=== PATIENT | female | born 2000 | race Caucasian/White ===

== ENCOUNTER 2022-01-14 10:02 | Emergency (ER) | payer BC, OTHER, SELFPAY ==
[~2022-01-14] VITALS: Ht 157.5 cm; Wt 122.0 kg
[2022-01-14 10:03] VITALS: BP 147/92
[2022-01-14 11:34] LABS: HCG, SERUM QUALITATIVE NEGATIVE (NEGATIVE)
[2022-01-14 13:13] LABS: BASO # 0.1 10^3/uL (0.0-0.2); BASO % 0.6 % (0.0-1.0); EOS # 0.1 10^3/uL (0.0-0.5); EOS % 1.2 % (0.0-3.0); HEMOGLOBIN 14.8 g/dl (12.0-15.5); LYMPH # 2.5 10^3/uL (1.5-5.0); LYMPH % 23.1 % (24.0-44.0); MEAN CORPUSCULAR HEMOGLOBIN 32.5 pg (27.0-33.0); MEAN CORPUSCULAR HGB CONC 35.2 g/dl (32.0-36.5); MEAN CORPUSCULAR VOLUME 92.3 fl (80.0-96.0); MONO # 0.6 10^3/uL (0.0-0.8); MONO % 5.2 % (2.0-8.0); NEUTROPHILS # 7.5 10^3/uL (1.5-8.5); NEUTROPHILS % 69.5 % (36.0-66.0); PLATELET COUNT, AUTOMATED 245 10^3/uL (150-450); RED BLOOD COUNT 4.55 10^6/uL (4.00-5.40); WHITE BLOOD COUNT 10.8 10^3/uL (4.0-10.0)
[2022-01-14 14:09] LABS: ALBUMIN 3.7 GM/DL (3.2-5.2); ALT/SGPT 25 U/L (12-78); BILIRUBIN,DIRECT < 0.1 MG/DL (0.0-0.2); BILIRUBIN,TOTAL 0.6 MG/DL (0.2-1.0); BLOOD UREA NITROGEN 14 MG/DL (7-18); CALCIUM LEVEL 9.2 MG/DL (8.5-10.1); CARBON DIOXIDE LEVEL 28 MEQ/L (21-32); CHLORIDE LEVEL 105 MEQ/L (98-107); CREATININE FOR GFR 0.79 MG/DL (0.55-1.30); GLOMERULAR FILTRATION RATE > 60.0 (>60); GLUCOSE, FASTING 88 MG/DL (70-100); LIPASE 110 U/L (73-393); POTASSIUM SERUM 4.6 MEQ/L (3.5-5.1); SODIUM LEVEL 139 MEQ/L (136-145); TOTAL PROTEIN 7.8 GM/DL (6.4-8.2)
[2022-01-14] MEDS ORDERED: KETOROLAC 30 MG/ML 1ML VIAL IM ONE (14:25)
[2022-01-14] MEDS ORDERED: KETOROLAC 30 MG/ML 1ML VIAL IV ONE (14:40)
[2022-01-14 15:45] LABS: GC DNA AMPLIFICATION NEGATIVE (NEGATIVE)
== END 2022-01-14 14:51 | disposition home or self-care (01) ==
LOC: M ED 10:02
DX: R10.2 Pelvic and perineal pain (principal)
CPT/HCPCS: 76830; 76856; 80048; 80076; 83690; 84703; 85025; 87661; 87810; 87850; 93976; 96372; 99282; J1885

== ENCOUNTER → 2022-10-04 | Outpatient (CLI) | payer OTHER | LOC: M PAIN 08:00 | PROVIDERS: ATTEND Nurse Practitioner Family | DX: M79.10 Myalgia, unspecified site (principal); G89.29 Other chronic pain; F17.210 Nicotine dependence, cigarettes, uncomplicated; Z86.59 Personal history of other mental and behavioral disorders; E66.01 Morbid (severe) obesity due to excess calories; Z68.43 Body mass index [BMI] 50.0-59.9, adult; Z79.899 Other long term (current) drug therapy ==

== ENCOUNTER 2022-10-31 09:01 | Emergency (ER) | payer MEDICAID, OTHER ==
[~2022-10-31] VITALS: Ht 157.5 cm; Wt 131.9 kg
[2022-10-31 09:02] VITALS: BP 156/66
[2022-10-31] MEDS ORDERED: LIDOCAINE 5% (LIDODERM) PATCH TD ONE (11:20)
[2022-10-31] MEDS ORDERED: CYCLOBENZAPRINE 5MG TABLET PO ONE (11:20)
[2022-10-31] MEDS ORDERED: KETOROLAC 30 MG/ML 1ML VIAL IM ONE (11:20)
[2022-10-31] MEDS ORDERED: KETO10TAB PO (12:07)
[2022-10-31] MEDS ORDERED: CYCL-707 PO (12:07)
== END 2022-10-31 12:15 | disposition home or self-care (01) ==
LOC: M ED 09:01
DX: M54.50 Low back pain, unspecified (principal); F41.9 Anxiety disorder, unspecified; F43.10 Post-traumatic stress disorder, unspecified; F17.200 Nicotine dependence, unspecified, uncomplicated; Z79.1 Long term (current) use of non-steroidal anti-inflammatories (NSAID); Z79.899 Other long term (current) drug therapy
CPT/HCPCS: 96372; 99282; J1885

== ENCOUNTER → 2022-11-12 | Outpatient (CLI) | payer MEDICAID ==
[~2022-11-12] MED LIST: CYCL-707 PO; KETO10TAB PO; TRIAMCINOLONE ACETONIDE SUSP 40MG/ML 1ML VIAL As Ordered ONE
== END ==
LOC: M PAIN 14:45
PROVIDERS: ATTEND Anesthesiology
DX: M79.18 Myalgia, other site (principal); G89.29 Other chronic pain; F17.210 Nicotine dependence, cigarettes, uncomplicated; Z86.59 Personal history of other mental and behavioral disorders; Z91.018 Allergy to other foods; Z79.899 Other long term (current) drug therapy
CPT/HCPCS: 20553; J3301; S0020

== ENCOUNTER → 2023-01-04 | Outpatient (CLI) | payer MEDICAID ==
[~2023-01-04] MED LIST changes: -TRIAMCINOLONE ACETONIDE SUSP 40MG/ML 1ML VIAL As Ordered ONE
[2023-01-04 18:15] LABS: URINE PREG TEST NEGATIVE (NEGATIVE)
[2023-01-04 18:22] LABS: BASO # 0.1 10^3/uL (0.0-0.2); BASO % 0.8 % (0.0-1.0); EOS # 0.3 10^3/uL (0.0-0.5); EOS % 3.6 % (0.0-3.0); HEMATOCRIT 40.6 % (36.0-47.0); HEMOGLOBIN 14.3 g/dl (12.0-15.5); LYMPH # 3.3 10^3/uL (1.5-5.0); LYMPH % 34.3 % (24.0-44.0); MEAN CORPUSCULAR HEMOGLOBIN 31.2 pg (27.0-33.0); MEAN CORPUSCULAR HGB CONC 35.2 g/dl (32.0-36.5); MEAN CORPUSCULAR VOLUME 88.6 fl (80.0-96.0); MONO # 0.6 10^3/uL (0.0-0.8); MONO % 6.2 % (2.0-8.0); NEUTROPHILS # 5.2 10^3/uL (1.5-8.5); NEUTROPHILS % 54.8 % (36.0-66.0); RED BLOOD COUNT 4.58 10^6/uL (4.00-5.40); WHITE BLOOD COUNT 9.5 10^3/uL (4.0-10.0)
[2023-01-04 18:29] LABS: HEMOGLOBIN A1c 4.5 % (4.0-6.0)
== END ==
LOC: M LAB 17:09
PROVIDERS: ATTEND Nurse Practitioner Family
DX: N92.0 Excessive and frequent menstruation with regular cycle (principal); M54.9 Dorsalgia, unspecified; E66.9 Obesity, unspecified

== ENCOUNTER → 2023-01-04 | Outpatient (CLI) | payer OTHER, MEDICAID | LOC: M RAD 16:20 | PROVIDERS: ATTEND Nurse Practitioner Family | DX: M46.1 Sacroiliitis, not elsewhere classified (principal) ==

== ENCOUNTER → 2023-01-04 | Outpatient (CLI) | payer MEDICAID | LOC: M PAIN 15:15 | PROVIDERS: ATTEND Nurse Practitioner Family | DX: M46.1 Sacroiliitis, not elsewhere classified (principal); G89.29 Other chronic pain; F17.210 Nicotine dependence, cigarettes, uncomplicated; Z86.59 Personal history of other mental and behavioral disorders; Z91.018 Allergy to other foods; E66.01 Morbid (severe) obesity due to excess calories; Z68.42 Body mass index [BMI] 45.0-49.9, adult; Z79.899 Other long term (current) drug therapy ==

== ENCOUNTER 2023-04-14 23:10 | Emergency (ER) | payer OTHER ==
[~2023-04-14] VITALS: Ht 157.5 cm; Wt 119.6 kg
[2023-04-14 23:10] VITALS: BP 131/78; TEMP 98.8; O2SAT 98
[2023-04-14] MEDS ORDERED: BUPR1TAB52 (23:18)
[2023-04-15] MEDS ORDERED: KETOROLAC 30 MG/ML 1ML VIAL IV ONE (01:40)
[2023-04-15] MEDS ORDERED: methocarbamoL 750 MG TAB PO ONE (01:40)
[2023-04-15] MEDS ORDERED: NAPR-837 PO (01:45)
[2023-04-15] MEDS ORDERED: METH-1165 PO (01:45)
[2023-04-15] MEDS ORDERED: KETOROLAC 60MG 2ML VIAL IM ONE (03:00)
== END 2023-04-15 02:21 | disposition home or self-care (01) ==
LOC: M ED 23:10
DX: M54.9 Dorsalgia, unspecified (principal); F17.210 Nicotine dependence, cigarettes, uncomplicated; Z79.899 Other long term (current) drug therapy; Z79.1 Long term (current) use of non-steroidal anti-inflammatories (NSAID)
CPT/HCPCS: 96372; 99282; J1885

== ENCOUNTER 2023-08-07 13:42 | Emergency (ER) | payer OTHER ==
[~2023-08-07] VITALS: Ht 157.5 cm; Wt 110.5 kg
[~2023-08-07 13:42] MED LIST changes: +BUPR1TAB52; +METH-1165 PO; +NAPR-837 PO
[2023-08-07 13:43] VITALS: BP 124/81; TEMP 97.4; O2SAT 96
[2023-08-07] MEDS ORDERED: escitalopram (13:56)
[2023-08-07] MEDS ORDERED: TRAZ1TAB11 (13:56)
[2023-08-07] MEDS ORDERED: CETI-24 (13:56)
[2023-08-07] MEDS ORDERED: DULO1CAP4 (13:56)
[2023-08-07] MEDS: ONDANSETRON 4MG ORAL DISINTEGRATING TAB SL ONE (14:28)
[2023-08-07 15:02] LABS: RSV AMPLIFICATION NEGATIVE (NEGATIVE)
[2023-08-07 15:13] LABS: BASO % 0.3 % (0.0-1.0); EOS # 0.1 10^3/uL (0.0-0.5); EOS % 1.1 % (0.0-3.0); HEMATOCRIT 45.3 % (36.0-47.0); HEMOGLOBIN 16.1 g/dl (12.0-15.5); LYMPH # 2.3 10^3/uL (1.5-5.0); LYMPH % 32.5 % (24.0-44.0); MEAN CORPUSCULAR HEMOGLOBIN 32.1 pg (27.0-33.0); MEAN CORPUSCULAR HGB CONC 35.5 g/dl (32.0-36.5); MEAN CORPUSCULAR VOLUME 90.2 fl (80.0-96.0); MONO # 0.4 10^3/uL (0.0-0.8); MONO % 5.4 % (2.0-8.0); NEUTROPHILS # 4.2 10^3/uL (1.5-8.5); NEUTROPHILS % 60.4 % (36.0-66.0); PLATELET COUNT, AUTOMATED 269 10^3/uL (150-450); RED BLOOD COUNT 5.02 10^6/uL (4.00-5.40)
[2023-08-07] MEDS: BENZONATATE 100MG CAPSULE PO ONE (15:22)
[2023-08-07 15:35] LABS: ALKALINE PHOSPHATASE 52 U/L (46-116); ALT/SGPT 21 U/L (7.0-40); AST/SGOT 45 U/L (<34); BILIRUBIN,DIRECT < 0.1 MG/DL (<0.4); BILIRUBIN,TOTAL 0.4 MG/DL (0.3-1.2); LIPASE 29 U/L (12-53); TOTAL PROTEIN 7.8 G/DL (5.7-8.2)
[2023-08-07] MEDS ORDERED: ONDA4TAB6 PO (16:07)
== END 2023-08-07 16:18 | disposition home or self-care (01) ==
LOC: M ED 13:42
DX: B34.8 Other viral infections of unspecified site (principal); Z90.49 Acquired absence of other specified parts of digestive tract; Z20.822 Contact with and (suspected) exposure to COVID-19; Z79.899 Other long term (current) drug therapy; Z79.83 Long term (current) use of bisphosphonates; Z79.52 Long term (current) use of systemic steroids

== ENCOUNTER → 2023-09-26 | Outpatient (CLI) | payer OTHER, MEDICAID ==
[~2023-09-26] MED LIST changes: +CETI-24; +DULO1CAP4; +ONDA4TAB6 PO; +TRAZ1TAB11; +escitalopram
== END ==
LOC: M PAIN 09:30
PROVIDERS: ATTEND Nurse Practitioner Family
DX: G89.29 Other chronic pain (principal); M46.1 Sacroiliitis, not elsewhere classified; F43.10 Post-traumatic stress disorder, unspecified; F41.9 Anxiety disorder, unspecified; M54.50 Low back pain, unspecified; F17.210 Nicotine dependence, cigarettes, uncomplicated; Z79.899 Other long term (current) drug therapy; Z91.02 Food additives allergy status
CPT/HCPCS: 99213; G0463

== ENCOUNTER → 2023-09-26 | Outpatient (REF) | payer OTHER, MEDICAID ==
[2023-09-27 17:58] LABS: HCG, SERUM QUALITATIVE NEGATIVE (NEGATIVE)
== END ==
LOC: M LAB REF 17:15
PROVIDERS: ATTEND Nurse Practitioner Family
DX: N92.5 Other specified irregular menstruation (principal)

== ENCOUNTER → 2023-10-04 | Outpatient (CLI) | payer OTHER | LOC: M RAD 09:35 | PROVIDERS: ATTEND Nurse Practitioner Family | DX: G89.29 Other chronic pain (principal); Z53.9 Procedure and treatment not carried out, unspecified reason ==

== ENCOUNTER 2023-10-25 13:32 | Emergency (ER) | payer OTHER ==
[~2023-10-25] VITALS: Ht 157.5 cm; Wt 114.7 kg
[2023-10-25 13:33] VITALS: BP 141/88; TEMP 97.4; O2SAT 98
[2023-10-25 14:46] LABS: BASO # 0.1 10^3/uL (0.0-0.2); BASO % 0.7 % (0.0-1.0); EOS # 0.1 10^3/uL (0.0-0.5); EOS % 1.3 % (0.0-3.0); HEMATOCRIT 41.6 % (36.0-47.0); HEMOGLOBIN 14.4 g/dl (12.0-15.5); LYMPH # 2.2 10^3/uL (1.5-5.0); LYMPH % 30.8 % (24.0-44.0); MEAN CORPUSCULAR HEMOGLOBIN 31.9 pg (27.0-33.0); MEAN CORPUSCULAR HGB CONC 34.6 g/dl (32.0-36.5); MONO # 0.5 10^3/uL (0.0-0.8); MONO % 7.5 % (2.0-8.0); NEUTROPHILS # 4.2 10^3/uL (1.5-8.5); NEUTROPHILS % 59.6 % (36.0-66.0); PLATELET COUNT, AUTOMATED 266 10^3/uL (150-450); RED BLOOD COUNT 4.52 10^6/uL (4.00-5.40); WHITE BLOOD COUNT 7.1 10^3/uL (4.0-10.0)
[2023-10-25 15:11] LABS: LIPASE 39 U/L (12-53)
[2023-10-25 15:13] LABS: ALBUMIN 3.7 G/DL (3.2-5.2); ALKALINE PHOSPHATASE 57 U/L (46-116); ALT/SGPT 11 U/L (7.0-40); AST/SGOT 9 U/L (<34); BILIRUBIN,DIRECT 0.1 MG/DL (<0.4); BILIRUBIN,TOTAL 0.4 MG/DL (0.3-1.2); BLOOD UREA NITROGEN 14 MG/DL (9-23); CALCIUM LEVEL 8.9 MG/DL (8.5-10.1); CARBON DIOXIDE LEVEL 25 MMOL/L (20-31); CHLORIDE LEVEL 106 MMOL/L (98-107); CREATININE FOR GFR 0.65 MG/DL (0.55-1.30); GLOMERULAR FILTRATION RATE > 60.0 (>60); GLUCOSE, FASTING 88 MG/DL (60-100); POTASSIUM SERUM 4.2 MMOL/L (3.5-5.1); SODIUM LEVEL 136 MMOL/L (136-145); TOTAL PROTEIN 7.3 G/DL (5.7-8.2)
[2023-10-25 15:59] LABS: HCG, SERUM QUALITATIVE NEGATIVE (NEGATIVE)
[2023-10-25] MEDS: ACETAMINOPHEN 325 MG TAB PO ONE (17:30)
== END 2023-10-25 18:24 | disposition home or self-care (01) ==
LOC: M ED 13:32
DX: R53.81 Other malaise (principal); M54.50 Low back pain, unspecified; F17.200 Nicotine dependence, unspecified, uncomplicated; F41.9 Anxiety disorder, unspecified; Z79.52 Long term (current) use of systemic steroids; Z79.899 Other long term (current) drug therapy

== ENCOUNTER 2023-11-28 09:43 | Emergency (ER) | payer MEDICAID, OTHER, SELFPAY ==
[~2023-11-28] VITALS: Ht 157.5 cm; Wt 111.4 kg
[~2023-11-28 09:43] MED LIST changes: +ONDA-282 PO; -ONDA4TAB6 PO
[2023-11-28] MEDS ORDERED: LIDOCAINE W/EPINEPHRINE 1% 20ML VIAL SC ONE (11:15)
[2023-11-28] MEDS: KETOROLAC 60MG 2ML VIAL IM ONE (13:15)
[2023-11-28 13:19] VITALS: BP 120/64; TEMP 97.6; O2SAT 100
== END 2023-11-28 13:31 | disposition home or self-care (01) ==
LOC: M ED 09:43
DX: S71.111A Laceration without foreign body, right thigh, initial encounter (principal); W25.XXXA Contact with sharp glass, initial encounter; F43.10 Post-traumatic stress disorder, unspecified; F41.9 Anxiety disorder, unspecified; Z79.899 Other long term (current) drug therapy; Z79.2 Long term (current) use of antibiotics; Y92.009 Unspecified place in unspecified non-institutional (private) residence as the place of occurrence of the external cause; Y93.89 Activity, other specified; Y99.9 Unspecified external cause status
CPT/HCPCS: 12001; 73552; 84702; 96372; 99283; J1885

== ENCOUNTER 2023-12-20 14:15 | Outpatient (RCR) | payer MEDICAID | END 2023-12-28 | LOC: M PT 14:15 | PROVIDERS: ATTEND Nurse Practitioner Family | DX: M54.50 Low back pain, unspecified (principal) ==

== ENCOUNTER 2024-02-17 16:39 | Emergency (ER) | payer MEDICAID, OTHER ==
[~2024-02-17] VITALS: Ht 157.5 cm; Wt 122.7 kg
[2024-02-17 16:49] VITALS: BP 140/99; TEMP 98.6; O2SAT 100
== END 2024-02-17 18:39 | disposition left against medical advice (07) ==
LOC: M ED 16:39
DX: Z53.21 Procedure and treatment not carried out due to patient leaving prior to being seen by health care provider (principal)

== ENCOUNTER 2024-03-09 11:25 | Emergency (ER) | payer OTHER ==
[~2024-03-09] VITALS: Ht 157.5 cm; Wt 125.0 kg
[2024-03-09] MEDS ORDERED: BENZ200C70 PO (14:44)
[2024-03-09] MEDS ORDERED: IBUP-1022 PO (14:44)
[2024-03-09 14:58] VITALS: BP 139/95; TEMP 97.8; O2SAT 97
== END 2024-03-09 15:01 | disposition home or self-care (01) ==
LOC: M ED 11:25 → EDBD 11:25 → M ED 15:01
DX: J06.9 Acute upper respiratory infection, unspecified (principal); Z91.030 Bee allergy status; Z91.018 Allergy to other foods

== ENCOUNTER → 2024-04-05 | Outpatient (REF) | payer OTHER ==
[~2024-04-05] MED LIST changes: +BENZ200C70 PO; +IBUP-1022 PO
[2024-04-09 16:42] LABS: HPV APTIMA Not Detected (Not Detected)
== END ==
LOC: M LAB REF 17:35
PROVIDERS: ATTEND Nurse Practitioner Family
DX: Z12.4 Encounter for screening for malignant neoplasm of cervix (principal); A59.9 Trichomoniasis, unspecified

== ENCOUNTER → 2024-04-18 | Outpatient (CLI) | payer OTHER ==
[2024-04-18 15:22] LABS: URIC ACID 7.6 MG/DL (3.1-7.8)
[2024-04-18 15:24] LABS: C REACTIVE PROTEIN QUANTITATIV 0.4 MG/DL (<1.0)
[2024-04-18 15:26] LABS: RHEUMATOID FACTOR QUANT 4.4 IU/ML (<14)
[2024-04-20 15:27] LABS: ANA SCREEN, IFA NEGATIVE (NEGATIVE)
== END ==
LOC: M LAB 14:21
PROVIDERS: ATTEND Nurse Practitioner Family
DX: R52 Pain, unspecified (principal)

== ENCOUNTER 2024-04-24 13:30 | Outpatient (RCR) | payer OTHER | END 2024-04-28 | LOC: M PT 13:30 | PROVIDERS: ATTEND Nurse Practitioner Family | DX: M54.16 Radiculopathy, lumbar region (principal) ==

== ENCOUNTER → 2024-05-04 | Outpatient (REF) | payer OTHER | LOC: M LAB REF 13:27 | PROVIDERS: ATTEND Nurse Practitioner Family | DX: R52 Pain, unspecified (principal) ==

== ENCOUNTER 2024-05-17 14:14 | Outpatient (RCR) | payer OTHER ==
[2024-05-18] MEDS ORDERED: METH-1164 PO (00:08)
== END 2024-05-29 ==
LOC: M PT 14:14
PROVIDERS: ATTEND Nurse Practitioner Family
DX: M54.50 Low back pain, unspecified (principal); M54.16 Radiculopathy, lumbar region

== ENCOUNTER 2024-05-17 14:28 | Emergency (ER) | payer OTHER ==
[~2024-05-17] VITALS: Ht 160 cm; Wt 122.0 kg
[2024-05-17] MEDS: methocarbamoL 500 MG TAB PO ONE (19:54)
[2024-05-17] MEDS: methylPREDNISolone 125MG 2ML VIAL IV ONE (19:54)
[2024-05-17] MEDS: KETOROLAC 30 MG/ML 1ML VIAL IV ONE (19:55)
[2024-05-17 20:32] LABS: URINE PREG TEST NEGATIVE (NEGATIVE)
[2024-05-18 00:04] VITALS: BP 139/90; TEMP 98; O2SAT 98
[2024-05-18] MEDS ORDERED: METH-1164 PO (00:08)
== END 2024-05-18 00:46 | disposition home or self-care (01) ==
LOC: M ED 14:28
DX: R20.2 Paresthesia of skin (principal); M54.50 Low back pain, unspecified; F51.01 Primary insomnia; F43.10 Post-traumatic stress disorder, unspecified; F17.200 Nicotine dependence, unspecified, uncomplicated; F12.10 Cannabis abuse, uncomplicated; Z79.899 Other long term (current) drug therapy; Z79.1 Long term (current) use of non-steroidal anti-inflammatories (NSAID); Z91.030 Bee allergy status; Z91.018 Allergy to other foods
CPT/HCPCS: 72131; 84703; 96374; 96375; 99284; J1885; J2919

== ENCOUNTER → 2024-06-25 | Outpatient (CLI) | payer OTHER ==
[~2024-06-25] MED LIST changes: +METH-1164 PO
[2024-06-25 11:59] LABS: BASO # 0.1 10^3/uL (0.0-0.2); BASO % 0.7 % (0.0-1.0); EOS # 0.6 10^3/uL (0.0-0.5); EOS % 5.6 % (0.0-3.0); HEMATOCRIT 40.2 % (36.0-47.0); HEMOGLOBIN 14.4 g/dl (12.0-15.5); LYMPH # 3.2 10^3/uL (1.5-5.0); LYMPH % 31.4 % (24.0-44.0); MEAN CORPUSCULAR HEMOGLOBIN 32.5 pg (27.0-33.0); MEAN CORPUSCULAR HGB CONC 35.8 g/dl (32.0-36.5); MEAN CORPUSCULAR VOLUME 90.7 fl (80.0-96.0); MONO # 0.5 10^3/uL (0.0-0.8); NEUTROPHILS # 5.8 10^3/uL (1.5-8.5); RED BLOOD COUNT 4.43 10^6/uL (4.00-5.40); WHITE BLOOD COUNT 10.2 10^3/uL (4.0-10.0)
[2024-06-25 12:31] LABS: ALBUMIN 3.4 G/DL (3.2-5.2); ALKALINE PHOSPHATASE 45 U/L (35-104); ALT/SGPT 13 U/L (7.0-40); AST/SGOT 17 U/L (<34); BILIRUBIN,TOTAL 0.3 MG/DL (0.3-1.2); BLOOD UREA NITROGEN 13 MG/DL (9-23); CALCIUM LEVEL 8.7 MG/DL (8.5-10.1); CARBON DIOXIDE LEVEL 23 MMOL/L (20-31); CHLORIDE LEVEL 109 MMOL/L (98-107); CREATININE FOR GFR 0.71 MG/DL (0.55-1.30); GLOMERULAR FILTRATION RATE > 60.0 (>60); GLUCOSE, FASTING 81 MG/DL (60-100); POTASSIUM SERUM 4.1 MMOL/L (3.5-5.1); SODIUM LEVEL 140 MMOL/L (136-145)
[2024-06-25 12:33] LABS: THYROID STIMULATING HORMONE 2.977 uIU/ML (0.55-4.78); TOTAL 25(OH) VITAMIN D 21.4 NG/ML (20.0-100.0)
== END ==
LOC: M EKG 10:27
PROVIDERS: ATTEND Nurse Practitioner Psychiatric/Mental Health
DX: F41.9 Anxiety disorder, unspecified (principal)

== ENCOUNTER 2024-07-30 11:09 | Emergency (ER) | payer OTHER ==
[~2024-07-30] VITALS: Ht 157.5 cm; Wt 127.5 kg
[2024-07-30 12:12] LABS: BASO # 0.1 10^3/uL (0.0-0.2); BASO % 0.6 % (0.0-1.0); EOS # 0.5 10^3/uL (0.0-0.5); EOS % 5.6 % (0.0-3.0); HEMATOCRIT 41.9 % (36.0-47.0); HEMOGLOBIN 14.9 g/dl (12.0-15.5); LYMPH # 2.8 10^3/uL (1.5-5.0); LYMPH % 33.4 % (24.0-44.0); MEAN CORPUSCULAR HEMOGLOBIN 31.9 pg (27.0-33.0); MEAN CORPUSCULAR HGB CONC 35.6 g/dl (32.0-36.5); MEAN CORPUSCULAR VOLUME 89.7 fl (80.0-96.0); MONO # 0.6 10^3/uL (0.0-0.8); MONO % 7.2 % (2.0-8.0); NEUTROPHILS # 4.5 10^3/uL (1.5-8.5); NEUTROPHILS % 52.8 % (36.0-66.0); PLATELET COUNT, AUTOMATED 284 10^3/uL (150-450); RED BLOOD COUNT 4.67 10^6/uL (4.00-5.40); WHITE BLOOD COUNT 8.5 10^3/uL (4.0-10.0)
[2024-07-30 12:41] LABS: CK-MB VALUE MASS < 1.0 NG/ML (<3.6)
[2024-07-30 12:43] LABS: CPK CREATINE PHOSPHOKINASE 60 U/L (34-145); MB/CK RELATIVE INDEX 1.66 (< OR =4)
[2024-07-30 12:52] LABS: HCG, SERUM QUALITATIVE NEGATIVE (NEGATIVE)
[2024-07-30 13:35] LABS: ALBUMIN 3.6 G/DL (3.2-5.2); ALKALINE PHOSPHATASE 48 U/L (35-104); ALT/SGPT 19 U/L (7.0-40); AST/SGOT 24 U/L (<34); BILIRUBIN,DIRECT < 0.1 MG/DL (<0.4); BILIRUBIN,TOTAL 0.4 MG/DL (0.3-1.2); BLOOD UREA NITROGEN 11 MG/DL (9-23); CALCIUM LEVEL 8.8 MG/DL (8.5-10.1); CARBON DIOXIDE LEVEL 24 MMOL/L (20-31); CHLORIDE LEVEL 107 MMOL/L (98-107); CREATININE FOR GFR 0.62 MG/DL (0.55-1.30); GLOMERULAR FILTRATION RATE > 60.0 (>60); GLUCOSE, FASTING 112 MG/DL (60-100); POTASSIUM SERUM 4.1 MMOL/L (3.5-5.1); SODIUM LEVEL 139 MMOL/L (136-145); TOTAL PROTEIN 7.6 G/DL (5.7-8.2)
[2024-07-30] MEDS ORDERED: RITA10TA PO (15:34)
[2024-07-30] MEDS ORDERED: GUAN1TA PO (15:34)
[2024-07-30] MEDS ORDERED: METH-1022 PO (15:34)
[2024-07-30] MEDS ORDERED: [UNRECOGNIZED DRUG - CODE] PO (15:34)
[2024-07-30] MEDS ORDERED: LEXA1TAB PO (15:34)
[2024-07-30] MEDS: NAPROXEN 250 MG TAB PO ONE (16:36)
[2024-07-30] MEDS: ACETAMINOPHEN 325 MG TAB PO ONE (16:37)
[2024-07-30 17:25] VITALS: BP 132/66; TEMP 98; O2SAT 99
== END 2024-07-30 17:25 | disposition home or self-care (01) ==
LOC: M ED 11:09 → EDBD 11:09 → M ED 17:25
DX: M94.0 Chondrocostal junction syndrome [Tietze] (principal); F43.10 Post-traumatic stress disorder, unspecified; F32.A Depression, unspecified; F41.9 Anxiety disorder, unspecified; M79.7 Fibromyalgia; Z91.030 Bee allergy status; Z91.018 Allergy to other foods; Z79.1 Long term (current) use of non-steroidal anti-inflammatories (NSAID); Z79.899 Other long term (current) drug therapy

== ENCOUNTER 2024-08-16 13:09 | Emergency (ER) | payer OTHER ==
[~2024-08-16] VITALS: Ht 157.5 cm; Wt 131.5 kg
[~2024-08-16 13:09] MED LIST changes: +GUAN1TA PO; +LEXA1TAB PO; +METH-1022 PO; +RITA10TA PO; +[UNRECOGNIZED DRUG - CODE] PO
[2024-08-16 14:01] LABS: BASO # 0.1 10^3/uL (0.0-0.2); BASO % 0.8 % (0.0-1.0); EOS # 0.4 10^3/uL (0.0-0.5); EOS % 4.8 % (0.0-3.0); HEMATOCRIT 40.5 % (36.0-47.0); HEMOGLOBIN 14.5 g/dl (12.0-15.5); LYMPH # 2.7 10^3/uL (1.5-5.0); LYMPH % 36.4 % (24.0-44.0); MEAN CORPUSCULAR HEMOGLOBIN 31.7 pg (27.0-33.0); MEAN CORPUSCULAR HGB CONC 35.8 g/dl (32.0-36.5); MEAN CORPUSCULAR VOLUME 88.4 fl (80.0-96.0); MONO # 0.5 10^3/uL (0.0-0.8); MONO % 6.8 % (2.0-8.0); NEUTROPHILS # 3.8 10^3/uL (1.5-8.5); NEUTROPHILS % 51.1 % (36.0-66.0); PLATELET COUNT, AUTOMATED 287 10^3/uL (150-450); RED BLOOD COUNT 4.58 10^6/uL (4.00-5.40); WHITE BLOOD COUNT 7.5 10^3/uL (4.0-10.0)
[2024-08-16 14:24] LABS: BLOOD UREA NITROGEN 13 MG/DL (9-23); CALCIUM LEVEL 8.8 MG/DL (8.5-10.1); CARBON DIOXIDE LEVEL 21 MMOL/L (20-31); CHLORIDE LEVEL 107 MMOL/L (98-107); CREATININE FOR GFR 0.57 MG/DL (0.55-1.30); GLOMERULAR FILTRATION RATE > 60.0 (>60); GLUCOSE, FASTING 93 MG/DL (60-100); HCG, SERUM QUANTITATIVE < 2.6 MIU/ML (<4.2); POTASSIUM SERUM 4.1 MMOL/L (3.5-5.1); SODIUM LEVEL 140 MMOL/L (136-145)
[2024-08-16 16:22] VITALS: BP 130/76; TEMP 97.7; O2SAT 98
== END 2024-08-16 16:24 | disposition home or self-care (01) ==
LOC: M ED 13:09
DX: N93.8 Other specified abnormal uterine and vaginal bleeding (principal); Z91.030 Bee allergy status; Z91.018 Allergy to other foods; Z79.899 Other long term (current) drug therapy; Z79.1 Long term (current) use of non-steroidal anti-inflammatories (NSAID)

== ENCOUNTER → 2024-08-23 | Outpatient (CLI) | payer MEDICAID, OTHER ==
[2024-08-23 16:20] LABS: HCG, SERUM QUANTITATIVE < 2.6 MIU/ML (<4.2)
[2024-08-23 16:24] LABS: FOLLICLE STIMULATING HORMONE 8.1 mIU/ML; FREE T4 1.19 NG/DL (0.89-1.76)
[2024-08-23 16:25] LABS: LUTEINIZING HORMONE 4.6 mIU/ML; PROLACTIN 6.82 NG/ML; THYROID STIMULATING HORMONE 2.166 uIU/ML (0.55-4.78)
[2024-08-23 16:46] LABS: HEMOGLOBIN A1c 4.9 % (4.0-6.0)
[2024-08-24 22:22] LABS: DEHYDROEPIANDROSTERONE SULFATE 147 mcg/dL (14-349)
== END ==
LOC: M PLALAB 14:16
PROVIDERS: ATTEND Advanced Practice Midwife
DX: N91.2 Amenorrhea, unspecified (principal)

== ENCOUNTER → 2025-01-08 | Outpatient (REF) | payer OTHER ==
[~2025-01-08] MED LIST changes: +BUPR-670; -BUPR1TAB52
[2025-01-08 19:17] LABS: HCG, SERUM QUALITATIVE NEGATIVE (NEGATIVE)
[2025-01-08 19:34] LABS: ESTIMATED AVERAGE GLUCOSE 94.0 MG/DL (60-110)
== END ==
LOC: M LAB REF 18:13
PROVIDERS: ATTEND Nurse Practitioner Family
DX: N92.6 Irregular menstruation, unspecified (principal); R63.5 Abnormal weight gain

== ENCOUNTER 2025-03-17 16:43 | Emergency (ER) | payer OTHER ==
[~2025-03-17] VITALS: Ht 157.5 cm; Wt 126.7 kg
[~2025-03-17 16:43] MED LIST changes: -IBUP-1022 PO; +IBUP600T42 PO
[2025-03-17 20:04] VITALS: BP 135/84; TEMP 98.2; O2SAT 97
== END 2025-03-17 20:03 | disposition home or self-care (01) ==
LOC: M ED 16:43
DX: S83.91XA Sprain of unspecified site of right knee, initial encounter (principal); X50.0XXA Overexertion from strenuous movement or load, initial encounter; M79.7 Fibromyalgia; Z91.030 Bee allergy status; Z91.018 Allergy to other foods; Z79.899 Other long term (current) drug therapy; Z79.1 Long term (current) use of non-steroidal anti-inflammatories (NSAID); Y92.009 Unspecified place in unspecified non-institutional (private) residence as the place of occurrence of the external cause; Y93.89 Activity, other specified; Y99.9 Unspecified external cause status